=== PATIENT | female | born 1950 | race Hispanic/Latino ===

== ENCOUNTER 2018-02-23 20:52 | Observation (INO) | payer MEDICARE, OTHER ==
[~2018-02-23] VITALS: Ht 157.5 cm; Wt 70.8 kg
[~2018-02-23 20:52] MED LIST: LOMOTIL TABLET1 EACH PO; NEXIUM40 MG PO; PEPCID COMPLET1 EACH; PRAVASTATIN SOD20 MG PO; VALTREX500 MG PO
[2018-02-23 21:49] LABS: BASOPHILS % 0.4 % (0.0-1.0); EOSINOPHILS % 0.2 % (0.0-6.0); HEMATOCRIT 44.1 % (34.2-44.1); HEMOGLOBIN 15.3 g/dL (12.0-16.0); LYMPHOCYTES # (AUTO) 2.1 (1.0-3.2); LYMPHOCYTES % 19.3 % (18.0-39.1); MEAN CORPUSCULAR HEMOGLOBIN 31.4 pg (28-32); MEAN CORPUSCULAR HGB CONC 34.7 g/dL (31-35); MEAN CORPUSCULAR VOLUME 90.4 fL (81-99); MONOCYTES # (AUTO) 0.7 (0.2-0.8); MONOCYTES % 6.1 % (4.4-11.3); NEUTROPHILS # (AUTO) 8.2 (2.1-6.9); NEUTROPHILS % 73.6 % (38.7-80.0); PLATELET COUNT 198 x10e3/uL (140-360); RED BLOOD COUNT 4.88 x10e6/uL (3.6-5.1); RED CELL DISTRIBUTION WIDTH 12.9 % (11.7-14.4)
[2018-02-23 22:01] LABS: ALANINE AMINOTRANSFERASE 42 IU/L (0-55); ALBUMIN 4.2 g/dL (3.5-5.0); ALBUMIN/GLOBULIN RATIO 1.1 (0.8-2.0); ALKALINE PHOSPHATASE 76 IU/L (40-150); ANION GAP 15.8 mmol/L (8-16); BLOOD UREA NITROGEN 10 mg/dL (7-26); BUN/CREATININE RATIO 15 (6-25); CARBON DIOXIDE 22 mmol/L (22-29); CHLORIDE 104 mmol/L (98-107); CREATINE KINASE 71 IU/L (29-168); CREATININE, SERUM 0.67 mg/dL (0.57-1.11); EST GLOMERULAR FILTRATION RATE > 60 ML/MIN (60-); GLUCOSE 138 mg/dL (74-118); POTASSIUM 3.8 mmol/L (3.5-5.1); SODIUM 138 mmol/L (136-145)
[2018-02-23 22:09] LABS: CLARITY,URINE SL CLOUDY (CLEAR); COLOR,URINE YELLOW (YELLOW); KETONES,URINE 1+ (NEGATIVE); LEUKOCYTE ESTERASE ,URINE NEGATIVE (NEGATIVE); NITRITE,URINE NEGATIVE (NEGATIVE); PROTEIN,URINE DIPSTICK NEGATIVE (NEGATIVE)
[2018-02-23 22:10] LABS: BILIRUBIN,URINE NEGATIVE (NEGATIVE); URINE UROBILINOGEN 0.2 mg/dL (0.2 - 1)
[2018-02-23 22:19] LABS: BACTERIA,URINE FEW /HPF; EPITHELIAL CELLS,URINE FEW /LPF
--- NOTE | 2018-02-23 22:47 | Diagnostic Imaging Report ---
History:Headache Comparison studies: None Technique: Axial images were obtained from the skull base to the vertex. Coronal and sagittal reconstructions obtained from the axial data. Dose modulation, iterative reconstruction, and/or weight based adjustment of the mA/kV was utilized to reduce the radiation dose to as low as reasonably achievable. Findings: Scalp/skull: No abnormalities. No fractures, blastic or lytic lesions. Extra-axial spaces: No masses. No fluid collections. Brain sulci: Appropriate for age. Ventricles: Normal in size and configuration. No hydrocephalus. Parenchyma: No abnormal densities. No masses, hemorrhage, acute or chronic cortical vascular insults. Sellar/suprasellar region: No abnormalities Craniocervical junction: Patent foramen magnum. No Chiari one malformation. IMPRESSION: No abnormalities . Signed by: DR Arturo Bryant M.D. on 02/23/2018 10:43 PM
--- NOTE | 2018-02-23 22:56 | Diagnostic Imaging Report ---
EXAM: CHEST 2 VIEWS, PA and lateral INDICATION: Headache, chest pain, vomiting COMPARISON: None FINDINGS: LINES/TUBES: None LUNGS: No consolidations or edema. PLEURA: No effusions or pneumothorax. HEART AND MEDIASTINUM: Normal size and contour. BONES AND SOFT TISSUES: No acute findings. IMPRESSION: No evidence of pneumonia. Signed by: Dr. Ally Sorto M.D. on 02/23/2018 10:52 PM
[2018-02-24] MEDS ORDERED: RANITIDINE HCL150 MG PO (00:13)
[2018-02-24] MEDS ORDERED: PAROXETINE HCL10 MG PO (00:13)
[2018-02-24] MEDS ORDERED: SUCRALFATE1 GM PO (00:13)
[2018-02-24] MEDS ORDERED: DIPHENHYDRAMINE HCL INJ 50 MG/ML VIAL IV ONE (00:45)
[2018-02-24] MEDS ORDERED: KETOROLAC TROMETHAMINE 30 MG/ML VIAL IV PRN (00:45)
[2018-02-24] MEDS ORDERED: METOCLOPRAMIDE HCL 10 MG/2ML VIAL IV ONE (00:45)
[2018-02-24] MEDS ORDERED: ASPIRIN 81 MG CHEW TAB PO STA (01:03)
[2018-02-24] MEDS ORDERED: ONDANSETRON HCL INJ 2 MG/ML VIAL IV PRN (01:15)
[2018-02-24] MEDS ORDERED: MORPHINE SULFATE 2 MG/ML SYR IV PRN (01:15)
[2018-02-24 03:00] VITALS: BP 166/79
[2018-02-24 03:04] VITALS: BP 166/79
[2018-02-24 03:10] VITALS: BP 166/79
[2018-02-24 04:00] VITALS: BP 118/64
[2018-02-24 05:55] LABS: CHOL/HDL RATIO 5.4 (3.0-3.6); CHOLESTEROL 210 MD/DL (0-199); CREATINE KINASE 53 IU/L (29-168); HDL CHOLESTEROL 39 MG/DL (40-60); LDL CHOLESTEROL 145 MG/DL (60-130); TRIGLYCERIDES 128 MG/DL (0-149)
[2018-02-24 07:36] VITALS: BP 109/61
[2018-02-24 07:58] VITALS: BP 109/61
[2018-02-24] MEDS ORDERED: ASPIRIN 81 MG ENTERIC COATED PO SCH (09:00)
[2018-02-24] MEDS ORDERED: FAMOTIDINE 20 MG/2 ML VIAL IV SCH (09:00)
[2018-02-24] MEDS ORDERED: XANAX0.25 MG PO (10:03)
--- NOTE | 2018-02-24 13:33 | Discharge Summary ---
SHORTSTAY SUMMARY Patient observation on February 24 and discharged February 24, 2018. PCP: Dr. Colin Mckeon CHIEF COMPLAINT: Panic disorder. Anxiety attack. HISTORY: A 67-year-old female apparently had a lot of stress for event and had some episode of panic attack. She was crying per her . She was having problem with her anxiety. She was taking Paxil at home. The patient came in complaining of chest discomfort and headaches but she was in a lot of stress with her family situation and the patient is otherwise stable. Cardiac enzymes negative. The patient has no significant cardiac event. EKG otherwise unremarkable. There are no ST-T wave changes. She also has a normal stress test back in March 2017 when she had that problem. Her ejection fraction was 70%. Patient stable; discharged home today. Continue home medication. She was taking Xanax 0.25 mg 1 tablet q.6 h. as needed for chest discomfort, panic disorder, anxiety. The patient to follow up with Dr. Colin Mckeon for any adjustment of medication. Job#: [id number] [place]
== END 2018-02-24 10:38 | disposition home or self-care (01) ==
LOC: ER 20:52 → ERHOLD 02-24 02:04 → IMCU 02-24 02:30
PROVIDERS: ADMIT Internal Medicine; ATTEND Internal Medicine
DX: F41.0 Panic disorder [episodic paroxysmal anxiety] (principal); R51 Headache; E78.5 Hyperlipidemia, unspecified; K21.9 Gastro-esophageal reflux disease without esophagitis; F32.9 Major depressive disorder, single episode, unspecified; R07.9 Chest pain, unspecified; R11.2 Nausea with vomiting, unspecified
CPT/HCPCS: 36415 ×2; 70450; 71046; 80053; 80061; 81001; 82550 ×2; 82553 ×2; 84484 ×2; 85025; 85651; 93005; 99284; G0378; J1200; J2765